=== PATIENT | male | born 1960 | race Caucasian/White ===

== ENCOUNTER 2018-12-31 07:41 | Day surgery (SDC) | payer MEDICARE ==
[~2018-12-31] VITALS: Ht 180.3 cm; Wt 104.3 kg
[~2018-12-31 07:41] MED LIST: CLONAZEPAM1 MG PO; DOCUSATE SOD100 MG PO; FENTANYL TD; FLUOXETINE40 MG PO; GABAPENTIN100 MG PO; GLUCOSAMINE CHONDROI PO; LAMICTAL200 M1 PO; MOBIC7.5 M1 PO; MULTIVITAMI9 PO; OMEPRAZOLE DR40 MG PO; OXYCODONE10 M1 PO; SINGULAIR10 MG PO; TESTOSTERON200 MG/M1 IM; TRAZODONE HCL100 M1 PO; WELLBUTRIN200 M1 PO
[2018-12-31 09:52] VITALS: BP 105/57
== END 2018-12-31 10:03 | disposition home or self-care (01) ==
LOC: ENDO 07:41
PROVIDERS: ATTEND Surgery
PROC: 0DBF8ZX Excision of Right Large Intestine, Via Natural or Artificial Opening Endoscopic, Diagnostic (ICD-10-PCS; principal; 2018-12-31)
DX: Z12.11 Encounter for screening for malignant neoplasm of colon (principal); D12.2 Benign neoplasm of ascending colon; K57.30 Diverticulosis of large intestine without perforation or abscess without bleeding; I10 Essential (primary) hypertension; Z86.010 Personal history of colon polyps; Z80.0 Family history of malignant neoplasm of digestive organs

== ENCOUNTER 2022-06-18 07:29 | Day surgery (SDC) | payer MEDICARE ==
[~2022-06-18 07:29] MED LIST changes: +ATORVASTATIN CA10 MG PO; +MEDICAL CANNABIS; +MIRTAZAPINE15 MG PO; +TIZANIDINE HCL4 M1 PO; -WELLBUTRIN200 M1 PO; +WELLBUTRIN200 MG PO
[2022-06-18 12:02] VITALS: BP 120/79
== END 2022-06-18 10:23 | disposition home or self-care (01) ==
LOC: ENDO 07:29 → ORM 09:15 → ENDO 10:23 → ORM 17:15
PROVIDERS: ATTEND Internal Medicine Gastroenterology
PROC: 0DBK8ZX Excision of Ascending Colon, Via Natural or Artificial Opening Endoscopic, Diagnostic (ICD-10-PCS; principal; 2022-06-18)
PROC: 0DBL8ZX Excision of Transverse Colon, Via Natural or Artificial Opening Endoscopic, Diagnostic (ICD-10-PCS; 2022-06-18)
PROC: 0DBM8ZX Excision of Descending Colon, Via Natural or Artificial Opening Endoscopic, Diagnostic (ICD-10-PCS; 2022-06-18)
DX: Z12.11 Encounter for screening for malignant neoplasm of colon (principal); D12.2 Benign neoplasm of ascending colon; D12.4 Benign neoplasm of descending colon; D12.3 Benign neoplasm of transverse colon; Z86.010 Personal history of colon polyps; Z80.0 Family history of malignant neoplasm of digestive organs
CPT/HCPCS: J0131

== ENCOUNTER 2022-09-07 11:32 | Emergency (ER) | payer MEDICARE ==
[~2022-09-07] VITALS: Ht 177.8 cm; Wt 90.7 kg
[2022-09-07] VITALS (13 sets, daily range): BP systolic 105–128; BP diastolic 62–85
[2022-09-07] MEDS ORDERED: KEFLEX500 MG PO (14:46)
[2022-09-07] MEDS ORDERED: NAPROXEN500 MG PO (14:46)
[2022-09-07] MEDS ORDERED: MEDDOSEPAK PO (14:46)
== END 2022-09-07 15:16 | disposition home or self-care (01) ==
LOC: ED 11:32
PROC: 0HQGXZZ Repair Left Hand Skin, External Approach (ICD-10-PCS; principal; 2022-09-07)
DX: S61.217A Laceration without foreign body of left little finger without damage to nail, initial encounter (principal); M54.50 Low back pain, unspecified; G89.29 Other chronic pain; W11.XXXA Fall on and from ladder, initial encounter; Y92.009 Unspecified place in unspecified non-institutional (private) residence as the place of occurrence of the external cause

== ENCOUNTER 2024-05-16 12:48 | Emergency (ER) | payer MEDICARE ==
[~2024-05-16] VITALS: Ht 177.8 cm; Wt 93.0 kg
[~2024-05-16 12:48] MED LIST changes: +KEFLEX500 MG PO; +MEDDOSEPAK PO; +NAPROXEN500 MG PO; +TAMSULOSIN0.4 MG PO
[2024-05-16] MEDS ORDERED: SODIUM CHLORIDE 0.9% 1,000 ML IV ONE (12:55)
[2024-05-16] MEDS ORDERED: ORPHENADRINE CITRATE 30 MG/ML AMP IV ONE (13:30)
[2024-05-16 13:41] LABS: BASO% 0.3 % (0-3); EOS% 0.8 % (0-8); HEMATOCRIT 40.4 % (39.0-50.0); HEMOGLOBIN 13.4 g/dl (14.0-18.0); IMMATURE GRANULOCYTES 0.2 % (0.0-5.0); LYMPH% 11.8 % (15-41); MEAN CELL VOLUME 93.1 fL CALC (80.0-100.0); MEAN CORPUSCULAR HGB 30.9 pG CALC (26.0-32.0); MEAN CORPUSCULAR HGB CONC 33.2 g/dL CAL (32.0-36.0); MONO% 6.5 % (2-13); NEUT# 5.03 thou/uL (1.82-7.42); NEUT% 80.4 % (42-76); RED BLOOD COUNT 4.34 mill/uL (4.70-6.10); RED CELL DISTRI WIDTH 12.9 % (11.5-15.5)
[2024-05-16 14:03] LABS: ALBUMIN 4.2 g/dL (3.2-5.0); ALKALINE PHOSPHATASE 34 u/l (38-126); ANION GAP 13 (6-22 (CALC)); BILIRUBIN, TOTAL 0.8 mg/dL (0.2-1.3); BUN 16 mg/dL (8-23); BUN/CREATININE RATIO 11 (12-20 (CALC)); CARBON DIOXIDE 24 mmol/l (22-30); CHLORIDE 106 mmol/l (95-108); CREATININE 1.4 mg/dL (0.7-1.3); ESTIMATED GFR 56 ML/MIN (>=90 (CALC)); POTASSIUM 3.7 mmol/l (3.5-5.1); SGOT/AST 39 u/l (19-48); SODIUM 140 mmol/l (137-146); TOTAL PROTEIN 6.7 g/dL (6.3-8.2)
[2024-05-16 14:45] VITALS: BP 111/65
[2024-05-16 15:00] VITALS: BP 111/69
[2024-05-16 15:16] VITALS: BP 113/66
[2024-05-16 15:30] VITALS: BP 124/71
[2024-05-16] MEDS ORDERED: METHOCARBAMOL500 MG PO (15:32)
[2024-05-16 15:41] VITALS: BP 124/71
== END 2024-05-16 16:16 | disposition home or self-care (01) ==
LOC: ED 12:48
PROVIDERS: Family Medicine
DX: I95.1 Orthostatic hypotension (principal); S00.01XA Abrasion of scalp, initial encounter; S16.1XXA Strain of muscle, fascia and tendon at neck level, initial encounter; W18.39XA Other fall on same level, initial encounter; Y93.A1 Activity, exercise machines primarily for cardiorespiratory conditioning; Y92.39 Other specified sports and athletic area as the place of occurrence of the external cause
CPT/HCPCS: J2360